=== PATIENT | male | born 1955 | race Two or more races ===

== ENCOUNTER 2020-04-21 09:19 | Outpatient (CLI) | payer MEDICAID ==
[2020-04-21 11:53] LABS: CREATININE, URINE 122.7 MG/DL (30.0-125.0); URINE TOTAL PROTEIN 7.1 mg/dL (0-11.9)
[2020-04-21 12:16] LABS: BILIRUBIN,URINE NEGATIVE (NEGATIVE); COLOR,URINE YELLOW (YELLOW); LEUKOCYTE ESTERASE ,URINE NEGATIVE (NEGATIVE); NITRITE, URINE NEGATIVE (NEGATIVE); PH,URINE 5.5 (5.0-8.0); PROTEIN,URINE NEGATIVE (NEGATIVE); UGLUCOSE NEGATIVE (NEGATIVE); UROBILINOGEN,URINE 0.2 EU/dL (0.2)
== END 2020-04-21 23:59 | disposition home or self-care (01) ==
LOC: MSC 09:19
PROVIDERS: ATTEND Internal Medicine
DX: N28.1 Cyst of kidney, acquired (principal); I12.9 Hypertensive chronic kidney disease with stage 1 through stage 4 chronic kidney disease, or unspecified chronic kidney disease; N18.9 Chronic kidney disease, unspecified; M10.9 Gout, unspecified; R32 Unspecified urinary incontinence; Z79.899 Other long term (current) drug therapy
CPT/HCPCS: 36415; 82570-TC; 84155-TC